=== PATIENT | male | born 1960 | race Caucasian/White ===

== ENCOUNTER 2019-07-09 09:44 | Observation (INO) | payer BC ==
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
[2019-07-09] MEDS ORDERED: Atorvastatin* 40 MG TAB PO ONE (10:23)
[2019-07-09] MEDS ORDERED: Aspirin 81 mg CHEW TAB* 81 MG TAB.CHEW PO ONE (10:23)
[2019-07-09] MEDS ORDERED: Clopidogrel TAB* 75 MG PO ONE (10:23)
[2019-07-09 10:30] LABS: ABS Basophils 0.1 10^3/ul (0-0.2); ABS Eosinophils 0.2 10^3/ul (0-0.6); ABS Lymphocytes 1.3 10^3/ul (1.0-4.8); ABS Monocytes 1.2 10^3/ul (0-0.8); ABS Neutrophils 8.9 10^3/ul (1.5-7.7); Eosinophil % 2.1 %; Hematocrit 46 % (42-52); Hemoglobin 15.7 g/dL (14.0-18.0); Mean Corpuscular HGB Conc 34 g/dL (31-36); Mean Corpuscular Hemoglobin 32 pg (27-31); Mean Corpuscular Volume 92 fL (80-94); Mean Platelet Volume 9.1 fL (7.4-10.4); Platelet Count 282 10^3/uL (150-450); Red Blood Count 4.97 10^6 /uL (4.18-5.48); Red Cell Distribution Width 13 % (10-15); White Blood Count 11.7 10^3/uL (3.5-10.8)
[2019-07-09 10:41] LABS: Activated Partial Thrombo Time 36.2 seconds (26.0-38.0); INR 0.99 (0.82-1.09)
[2019-07-09 10:47] LABS: ALT 33 U/L (7-52); AST 29 U/L (13-39); Albumin 4.4 g/dL (3.2-5.2); Albumin/Globulin Ratio 1.6 (1-3); Alkaline Phosphatase 77 U/L (34-104); Anion Gap 9 mmol/L (2-11); BUN/Creatinine Ratio 11.3 (8-20); Blood Urea Nitrogen 15 mg/dL (6-24); CO2 Carbon Dioxide 21 mmol/L (22-32); Calcium 9.7 mg/dL (8.6-10.3); Chloride 105 mmol/L (101-111); Cholesterol 204 mg/dL; EGFR African American 66.8 (>60); EGFR Non-African American 55.2 (>60); Globulin 2.8 g/dL (2-4); Glucose 108 mg/dL (70-100); HDL Cholesterol 37.8 mg/dL; LDL Cholesterol 135 mg/dL; Potassium 4.5 mmol/L (3.5-5.0); Sodium 135 mmol/L (135-145); Total Protein 7.2 g/dL (6.4-8.9); Triglycerides 156 mg/dL
[2019-07-09] MEDS ORDERED: Iodixanol* (CONTRAST) 320 MG/ML 100 ML SDV IV ONE (10:53)
[2019-07-09 11:18] LABS: Alcohol < 10 mg/dL (<10)
--- NOTE | 2019-07-09 11:31 | ADMNOTE ---
Subjective Date of Service: 07/09/19 Interval History: ADMISSION HISTORY AND PHYSICAL EXAM: Allergies Allergy/AdvReac Type Severity Reaction Status Date / Time No Known Allergies Allergy Verified 07/09/19 10:15 HOME MEDICATIONS: none HPI: The patient was in his usual state of health until about 6 AM today. He is visiting from [place] and was at his son's wedding yesterday. He states he had "quite a few" drinks at the wedding but felt OK although intoxicated when he went to bed about MN. He awoke with slurred speech and his R arm being numb and tingly. Family History: Findings - unremarkable Social History: Findings - Lives with his who is his SDM. Smoker, social alcohol use. Past Medical History: Findings - Hernia repair Review of Systems - Measurements Intake and Output: Intake and Output Last 24 Hours 07/07/19 07/08/19 07/09/19 07/10/19 06:59 06:59 06:59 06:59 Weight 194 lb 12.8 oz - Review of Systems Constitutional Symptoms: Negative: Weight Gain, Weight Loss, Weakness, Fatigue, Fever, Night Sweats, Unexplained Falls, Other Dermatology: Positive: Normal HEENT: Positive: Normal Eyes: Positive: Normal Pulmonary: Positive: Normal Cardiology: Positive: Normal Gastroenterology: Positive: Normal Genital - Urinary: Positive: Normal Genitourinary - Male: Negative: Prostatism, Erectile Dysfunction, Family Hx of Prostate Cancer, Other Musculoskeletal: Negative: Joint Pain, Joint Stiffness, Arthritis, Osteoporosis, Low Back Pain , Sciatica, Joint Deformities, Kyphoscoliosis, Other Endocrinology: Positive: Normal Hematologic/Lymphatic: Negative: Anemia, Easy Bruising, Hx Leukemia, Hx Lymphoma, Use of Anticoagulant, Use of Antiplatelet Drugs, Other Neurology: Positive: Change in Speech, Numbness\\Paresthesiae Psychiatry: Negative: Normal, Depression, Anxiety, Depressed Mood, Anhedonia, Sexual Dysfunction, Weight Change, Guilt Feelings, Tearfulness, Unusual Fatigue, Unusual Anxiety, Suicidal Ideation, Hypomania, Eating Disorders, Other Allergic/Immunologic: Negative: Hx Anaphylaxis, Hx Angioedema, Hx Environmental, Hx Seasonal, Asthma, Hx HIV, Immunocompromise, Swollen Glands LymphNodes, Other Objective Vital Signs - 8 hr 07/09/19 07/09/19 07/09/19 09:54 09:55 09:57 Temperature 98.4 F Pulse Rate 96 95 92 Respiratory 27 34 16 Rate Blood Pressure 161/115 161/115 (mmHg) O2 Sat by Pulse 97 98 Oximetry 07/09/19 07/09/19 07/09/19 10:00 10:13 10:25 Temperature Pulse Rate 89 82 Respiratory 26 22 26 Rate Blood Pressure 162/111 155/98 (mmHg) O2 Sat by Pulse 97 96 Oximetry 07/09/19 11:07 Temperature Pulse Rate 96 Respiratory 24 Rate Blood Pressure (mmHg) O2 Sat by Pulse 98 Oximetry Oxygen Devices in Use Now: None Appearance: Alert, partly up on ED stretcher. In good spirits. Looks comfortable. Eyes: No Scleral Icterus Ears/Nose/Mouth/Throat: Clear Oropharnyx, Mucous Membranes Moist Neck: NL Appearance and Movements; NL JVP, No Thyroid Enlargement, Masses Respiratory: Symmetrical Chest Expansion and Respiratory Effort, Clear to Auscultation, Clear to Percussion Cardiovascular: NL Sounds; No Murmurs; No JVD, RRR, No Edema, - Abdominal: NL Sounds; No Tenderness; No Distention, No Hepatosplenomegaly, - Extremities: No Edema, No Clubbing, Cyanosis, - Skin: No Rash or Ulcers, No Nodules or Sclerosis, - Neurological: Alert and Oriented x 3, NL Sensation - Slurred speech. Good word- finding. Flattened R nasolabial fold. Handgrips strong. Result Diagrams: 07/09/19 10:22 07/09/19 10:22 Assess/Plan/Problems-Billing Assessment: - Patient Problems (1) Cerebrovascular disease Current Visit: Yes Status: Acute Code(s): I67.9 - CEREBROVASCULAR DISEASE, UNSPECIFIED SNOMED Code(s): 64410905 Comment: TIA vs CVA. CTA neg. MRI, echo ordered. OT/PT. Dr. Cottrell to consult. Continue ASA and clopidogrel. Lipid profile 07/10. (2) HTN (hypertension) Current Visit: Yes Status: Acute Code(s): I10 - ESSENTIAL (PRIMARY) HYPERTENSION SNOMED Code(s): 52822085 Comment: Start with amlodipine 2.5 mg 07/09 with permissive HTN. Note several diastolics over 110. Patient has not had any regular medical care and may have had HTN for years. (3) CKD (chronic kidney disease) stage 3, GFR 30-59 ml/min Current Visit: Yes Status: Acute Code(s): N18.3 - CHRONIC KIDNEY DISEASE, STAGE 3 (MODERATE) SNOMED Code(s): 226210454 Comment: Est GFR 55.2. Repeat BMP 07/10. (4) Tobacco abuse Current Visit: Yes Status: Acute Code(s): Z72.0 - TOBACCO USE SNOMED Code( s): 041583319 Comment: Pt advised to quit smoking and avoid second hand smoke. Nicotine patch ordered.
[2019-07-09 11:55] LABS: Urine Appearance Cloudy; Urine Bacteria Absent (Absent); Urine Bilirubin Negative (Negative); Urine Blood 3+ (Negative); Urine Color Amber; Urine Glucose Negative (Negative); Urine Ketones Negative (Negative); Urine Nitrite Negative (Negative); Urine Protein 1+(30 mg/dL) (Negative); Urine Red Blood Cell 3+(>10/hpf) (Absent); Urine Specific Gravity 1.015 (1.010-1.030); Urine Urobilinogen Negative (Negative); Urine White Blood Cell Trace(0-5/hpf) (Absent)
[2019-07-09] MEDS ORDERED: amLODIPine TAB* 5 MG PO SCH (12:00)
[2019-07-09] MEDS: Nicotine PATCH 21 MG/24 HR* PATCH TRANSDERM SCH (14:38)
[2019-07-09] MEDS ORDERED: amLODIPine TAB* 5 MG ONE (15:04)
[2019-07-09] MEDS ORDERED: amLODIPine TAB* 5 MG PO ONE (16:00)
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
[2019-07-10] MEDS: Nicotine PATCH 21 MG/24 HR* PATCH TRANSDERM SCH (07:56)
[2019-07-10] MEDS ORDERED: amLODIPine TAB* 5 MG PO ONE (08:30)
[2019-07-10] MEDS ORDERED: Aspirin 81 mg CHEW TAB* 81 MG TAB.CHEW PO SCH (09:00)
[2019-07-10] MEDS ORDERED: Clopidogrel TAB* 75 MG PO SCH ×2 (09:00)
[2019-07-10] MEDS ORDERED: amLODIPine TAB* 5 MG PO SCH ×2 (09:00)
[2019-07-10] MEDS ORDERED: Atorvastatin* 40 MG TAB PO SCH (09:00)
--- NOTE | 2019-07-10 10:54 | ECHO ---
*[facility]* [place] [address] Fax #: [phone] Transthoracic Echocardiogram Patient: Gabo Luque : 1960 Study Date: 07/10/2019 Age: 59 Gender: M HR: 89 bpm Height: 71 in /180.3 cm BSA: 2.08 m^2 Weight: 193.6 lb /88 kg BMI: 27.1 kg/m^2 *Appliance Assembler: * Angelique Aviles [facility] *Referring Physician: * Brijesh Sears *Reading Physician: * Remberto Frazier MD Indications: TIA. History: Risk factors: Current tobacco use. Hypertension. Conclusions Summary: - Left ventricle: Systolic function is normal. The estimated ejection fraction is 55-60%. Wall motion is normal; there are no regional wall motion abnormalities. - Right ventricle: Systolic function is normal. - Atrial septum: A PFO is not demonstrated by color Doppler or agitated saline contrast. - Mitral valve: The findings are consistent with mild stenosis. There is no significant regurgitation. - Aortic valve: There is no evidence of stenosis. There is no significant regurgitation. - Tricuspid valve: There is no significant regurgitation. - Pericardium, extracardiac: There is no significant pericardial effusion. - Study data: No prior study is available for comparison. Study data: Transthoracic echocardiogram. Procedure: Transthoracic echocardiography was performed. Image quality was adequate. A bubble study was performed. Images 76 and 77. Complete 2D, spectral Doppler, and color flow Doppler. Location: Bedside. Patient status: Inpatient. Patient room number: 441 01. No prior study is available for comparison. Rhythm: Normal sinus rhythm. Findings Left ventricle: The cavity size is normal. Wall thickness is mildly increased. Systolic function is normal. The estimated ejection fraction is 55-60%. Wall motion is normal; there are no regional wall motion abnormalities. Doppler parameters are consistent with abnormal left ventricular relaxation (grade 1 diastolic dysfunction). Right ventricle: The cavity size is normal. Wall thickness is mildly increased. Systolic function is normal. Left atrium: The atrium is normal in size. Right atrium: The atrium is normal in size. Atrial septum: A PFO is not demonstrated by color Doppler or agitated saline contrast. Mitral valve: The Mitral valve annulus appears mildly calcified. The leaflets are mildly calcified. The findings are consistent with mild stenosis. There is no significant regurgitation. Aortic valve: The leaflets are normal thickness and mildly calcified. There is no evidence of stenosis. There is no significant regurgitation. Tricuspid valve: The leaflets are normal thickness. There is no evidence of stenosis. There is no significant regurgitation. Pulmonic valve: Not well visualized. There is no significant regurgitation. Aorta: The aorta is poorly visualized. Pericardium: There is no significant pericardial effusion. Pulmonary arteries: Not well visualized. Systolic pressure can not be accurately estimated. Systemic veins: Inferior vena cava: The vessel is normal in size. There is (>= 50%) respiratory change in the IVC dimension. Measurements Left ventricle Value Ref Right atrium Value Ref ROMANA, LAX (L) 4.1 cm 4.2 - 5.8 SI dim, ES 3.8 cm 3.4 - 5.3 ESD, LAX 2.9 cm 2.5 - 4.0 ML dim, ES, A4C 4.1 cm 2.6 - 4.4 FS, LAX 29 % 25 - 43 PW, ED, LAX 1.0 cm 0.6 - 1.0 Aortic valve Value Ref EF 56 % 52 - 72 Peak v, S 1.16 m/sec --------- E', lat bina, TDI (L) 6.8 cm/sec >=10.0 VTI, S 22.7 cm --- ------ E/e', lat bina, 13 Mean grad, S 4.0 mm Hg ------ --- TDI Peak grad, S 5.0 mm Hg --------- E', med bina, TDI (L) 4.4 cm/sec >=7.0 E/e', med bina, 20 Mitral valve Value Ref TDI Peak E 0.89 m/sec --------- E', avg, TDI 5.6 cm/sec Peak A 1.24 m/sec ------ --- E/e', avg, TDI (H) 16 <=14 Decel time 219 ms --- ------ PHT 70 ms --------- LVOT Value Ref Mean grad, D 2.0 mm Hg --------- Peak maria teresa, S 1.08 m/sec Peak grad, D 6.0 mm Hg --------- Mean grad, S 2 mm Hg Peak E/A ratio 0.7 --------- MVA, PHT 3.1 cm^2 --------- Ventricular septum Value Ref IVS, ED (H) 1.1 cm 0.6 - 1.0 Pulmonic valve Value Ref Peak v, S 0.79 m/sec --------- Right ventricle Value Ref Peak grad, S 3.0 mm Hg --------- ROMANA minor ax, 3.1 cm 1.9 - 3.5 A4C mid Decending aorta Value Ref Bony peak maria teresa 0.65 m/sec --------- Left atrium Value Ref AP dim, ES 3.50 cm 3.00 - Inferior vena cava Value Ref 4.00 Diam 1.9 cm --------- ML dim, A4C 3.6 cm SI dim, A4C 5.6 cm Vol/bsa, ES, A/L 27 ml/m^2 16 - 34 Legend: (L) and (H) cami values outside specified reference range. Prepared and electronically signed by Remberto Frazier MD 07/10/2019 10:54
--- NOTE | 2019-07-10 11:57 | DS ---
DISCHARGE SUMMARY: DATE OF ADMISSION: 07/09/19 DATE OF DISCHARGE: 07/10/19 HISTORY OF PRESENT ILLNESS/HOSPITAL COURSE: This 59-year-old man presented with slurring of speech and tingling and numbness of his right arm. He woke with it on the day of admission. The day before, he had been at his son's wedding, had quite a few drinks. He may have been a little intoxicated when he went to bed about midnight. He has never had similar symptoms before. I note he had not really had any medical care at all for a number of years and is taking no prescription medications at home. As far as he know, he had not had his blood pressure checked for several years, either. The rest of the history is detailed in the admission note. CT scan of the brain was negative. CTA of the head and neck showed no large- vessel occlusion. The patient was seen in consultation by Dr. Cottrell. He felt the patient had a cerebrovascular accident. The patient was started on aspirin and clopidogrel and atorvastatin. The clopidogrel should be stopped after 1 month. An MRI of the brain showed a non-hemorrhagic infarct. The patient will also have an echocardiogram with bubble study and a speech language therapy, swallow evaluation before discharge. Those results are pending at this time. PERTINENT LABORATORY DATA: White count is 11.7, hemoglobin 15.7, platelets 282. Creatinine 1.33. Glucose 108. Triglycerides 156, total cholesterol 204, LDL 135, HDL 37.8. The patient was given a nicotine patch and was instructed on how to taper it at home. He was given the work release to be off of work for 2 weeks and resume work of light duty. This can be modified at his follow-up primary care visit. The patient was started on amlodipine for his high blood pressure. I suspect he has had high blood pressure for quite some time. This may be related to his renal dysfunction, and he may have hypertensive nephropathy. I would certainly repeat his creatinine within the next week or so. As noted above, it was 1.33 as mentioned here. The patient on discharge still had right facial weakness, slurring of his speech , and mild clumsiness of his right hand. No real weakness, no arm drift. His language skills were intact. FINAL DIAGNOSES: 1. Cerebrovascular accident. 2. Hypertension. 3. Renal insufficiency. 4. Tobacco abuse. DISCHARGE MEDICATIONS: 1. Amlodipine 5 mg daily. 2. Aspirin 81 mg daily. 3. Atorvastatin 40 mg daily. 4. Clopidogrel 75 mg daily for 1 month only. 5. Nicotine patch 21 mg daily, to be tapered every 2 weeks. DISPOSITION ON DISCHARGE: Discharged home with follow-up later this week with his primary physician. CONDITION ON DISCHARGE: Stable. [id number]/[facility] #: [id number] MTDD
[2019-07-10 12:14] VITALS: BP 143/86
[2019-07-11] MEDS ORDERED: amLODIPine TAB* 5 MG PO SCH (09:00)
== END 2019-07-10 15:07 | disposition home or self-care (01) ==
LOC: ED 09:44 → MEDTELE 11:40 → UNDODISOB 13:13
PROVIDERS: ADMIT Internal Medicine; ATTEND Internal Medicine
DX: I63.9 Cerebral infarction, unspecified (principal); I67.9 Cerebrovascular disease, unspecified; I12.9 Hypertensive chronic kidney disease with stage 1 through stage 4 chronic kidney disease, or unspecified chronic kidney disease; N18.3 Chronic kidney disease, stage 3 (moderate); F17.210 Nicotine dependence, cigarettes, uncomplicated; Z79.82 Long term (current) use of aspirin; Z79.899 Other long term (current) drug therapy; R94.31 Abnormal electrocardiogram [ECG] [EKG]
CPT/HCPCS: 36415; 70450; 70496; 70498; 70551; 71045; 80053; 80061; 80320; 81003; 81015; 83605; 84484; 85025; 85610; 85730; 87086; 93005; 93306; 99285; A9270-GY; G0378; G0480; G8978-GP-CH; G8978-GP-CI; G8979-GP-CH; G8980-GP-CH; G8996-GN-CH; G8997-GN-CH; G8998-GN-CH; Q9967